=== PATIENT | male | born 1965 | race Two or more races ===

== ENCOUNTER 2022-12-05 03:54 | Emergency (ER) | payer BC, OTHER ==
[~2022-12-05] VITALS: Ht 165.1 cm; Wt 77.8 kg
[2022-12-05] MEDS ORDERED: KETOROLAC TROMETH 30 MG/ML 1ML VIAL IM ONE (04:30)
[2022-12-05 04:48] LABS: Urine WBC None Seen /hpf (0 - 3)
[2022-12-05 05:29] LABS: Urine Bacteria NONE SEEN /hpf (None Seen); Urine Blood Negative /uL (Negative); Urine Specific Gravity 1.014 (1.001-1.035)
[2022-12-05 07:28] LABS: Potassium 3.5 mmol/L (3.5-5.1)
[2022-12-05 07:36] LABS: BUN/Creatinine Ratio 12.8 (10.0-20.0); Calcium 8.4 mg/dL (8.5-10.1)
[2022-12-05 07:45] LABS: Albumin 3.6 g/dL (3.4-5.0); Bilirubin, Total 0.5 mg/dL (0.2-1.0); Total Protein 7.1 g/dL (6.4-8.2)
[2022-12-05 07:50] LABS: Basophils # (auto) 0.1 10 ^3/uL (0-0.2); Basophils % (auto) 0.9 % (0.0-2.0); Eosinophils # (auto) 0.2 10 ^3/uL (0-0.8); Eosinophils % (auto) 3.1 % (0.0-7.0); Hematocrit 44.5 % (41.0-53.0); Hemoglobin 15.1 g/dL (13.5-17.5); Lymphocytes # (auto) 2.2 10 ^3/uL (0.4-5.4); Lymphocytes % (auto) 27.7 % (10.0-50.0); Mean Corpuscular Hemoglobin 29.8 pg (28.0-32.0); Mean Corpuscular Volume 87.7 fL (80.0-100.0); Monocytes # (auto) 0.8 10 ^3/uL (0-1.3); Monocytes % (auto) 10.8 % (0.0-12.0); Neutrophils # (auto) 4.5 10 ^3/uL (1.6-8.6); Neutrophils % (auto) 57.5 % (37.0-80.0); Nucleated Red Blood Cells % 0.1 %; Red Blood Cells 5.07 10^6/uL (4.5-5.90); Red Cell Distribution Width 13.4 % (11.8-14.3); White Blood Cell 7.8 10^3/uL (4.4-10.8)
[2022-12-05] MEDS ORDERED: LORazepam 2MG/ML-1ML VIAL IM ONE (13:45)
[2022-12-05 13:54] VITALS: BP 130/88
[2022-12-05] MEDS ORDERED: CYCL-839 PO (15:25)
[2022-12-05] MEDS ORDERED: MELO-335 PO (15:25)
== END 2022-12-05 16:02 | disposition home or self-care (01) ==
LOC: ER 03:54
DX: M54.59 Other low back pain (principal)
CPT/HCPCS: 36415; 74176; 80053; 81001; 83690; 85025; 96372; 99285; J1885; J2060; J7030